=== PATIENT | male | born 1970 | race Hispanic/Latino ===

== ENCOUNTER 2020-07-30 13:53 | Emergency (ER) | payer OTHER, SELFPAY ==
[~2020-07-30 13:53] MED LIST: Iopamidol-370 76% 500 ML 1 ML ONE
[2020-07-30 14:44] LABS: #Monocytes 0.4 thou/uL (0.11-0.59); #Neutrophils 9.2 thou/uL (1.40-6.50); %Basophils 0.3 % (0.0-1.0); %Lymphocytes 9.3 % (21.0-51.0); %Monocytes 3.7 % (0.0-10.0); %Neutrophils 86.6 % (42.0-75.0); Hemoglobin 13.9 g/dL (14.0-18.0); Mean Corpuscular Hemoglobin 28.7 pg (27.0-31.0); Mean Corpuscular Volume 86.8 fL (78.0-98.0); Mean Platelet Volume 7.9 fL (7.4-10.4); Platelet Count 260 thou/uL (130-400); RBC Distribution Width 12.6 % (11.5-14.5); Red Blood Cell (RBC) Count 4.85 mill/uL (4.70-6.10); White Blood Cell (WBC) Count 10.6 thou/uL (4.8-10.8)
[2020-07-30 15:04] LABS: ALT (SGPT) 37 U/L (8-55); AST (SGOT) 31 U/L (5-34); Albumin 3.7 g/dL (3.5-5.0); Alkaline Phosphatase 109 U/L (40-110); Anion Gap 20 mmol/L (10-20); BUN (Urea Nitrogen) 27 mg/dL (8.4-25.7); Bilirubin, Total 0.9 mg/dL (0.2-1.2); CK (CPK) 584 U/L (30-200); Calc. Creatinine Clearance 0 mL/min (70-130); Calcium 8.5 mg/dL (7.8-10.44); Carbon Dioxide 20 mmol/L (22-29); Chloride 97 mmol/L (98-107); Globulin 2.9 g/dL (2.4-3.5); Glucose 282 mg/dL (70-105); Lipase 46 U/L (8-78); Potassium 4.3 mmol/L (3.5-5.1); Protein, Total 6.6 g/dL (6.0-8.3); Sodium 133 mmol/L (136-145)
[2020-07-30 17:15] LABS: Squamous Epithelial None Seen HPF (0-3); WBC/HPF Greater than 50 HPF (0-3)
[2020-07-30 17:16] LABS: Bilirubin Negative (Negative); Blood, Urine 3+ (Negative); Clarity Extra Turbid (Clear); Glucose, Urine (Dipstick) Greater than 1000 mg/dL (Negative); Ketone, Urine Negative (Negative); Leukocyte 500 Leu/uL (Negative); Nitrite Negative (Negative); Protein, Urine (Dipstick) 50 mg/dL (Neg-Trace); Specific Gravity, Urine 1.036 (1.002-1.036); pH, Urine 6.5 (5.0-9.0)
[2020-07-30 17:17] LABS: Bacteria/HPF 1+ HPF (None Seen)
== END 2020-07-30 17:40 | disposition home or self-care (01) ==
LOC: ERS 13:53
DX: R05 Cough (principal); R50.9 Fever, unspecified; R06.02 Shortness of breath
CPT/HCPCS: 36415; 71045; 71275; 80053; 81003; 81015; 82550; 83605; 83690; 83880; 84484; 85025; 85379; 87040; 93005; Q9967

== ENCOUNTER 2024-03-18 15:30 | Emergency (ER) | payer OTHER ==
[2024-03-18] MEDS ORDERED: Bacitracin 1 PK ONE (16:11)
[2024-03-18] MEDS ORDERED: TETANUS AND DIPHTHERIA TOX/PF 0.5 ML DISP.SYRIN ONE (16:11)
[2024-03-18] MEDS ORDERED: Lidocaine 1% w/Epinephrine 1:100K 20 ML VIAL ONE (16:11)
== END 2024-03-19 17:07 | disposition home or self-care (01) ==
LOC: ERS 15:30
DX: S81.811A Laceration without foreign body, right lower leg, initial encounter (principal); E11.9 Type 2 diabetes mellitus without complications; I10 Essential (primary) hypertension; Z23 Encounter for immunization; W31.89XA Contact with other specified machinery, initial encounter; Y93.89 Activity, other specified
CPT/HCPCS: 12001; 90471; 90714

== ENCOUNTER 2024-04-03 08:44 | Emergency (ER) | payer OTHER ==
[2024-04-03] MEDS ORDERED: Bacitracin 1 PK ONE (09:08)
== END 2024-04-03 09:16 | disposition home or self-care (01) ==
LOC: ERS 08:44
DX: S81.811D Laceration without foreign body, right lower leg, subsequent encounter (principal); I25.2 Old myocardial infarction; E11.9 Type 2 diabetes mellitus without complications; I10 Essential (primary) hypertension; Z79.899 Other long term (current) drug therapy